=== PATIENT | female | born 1975 | race Caucasian/White ===

== ENCOUNTER 2023-02-16 11:55 | Emergency (ER) | payer OTHER ==
[2023-02-16] MEDS: Bacitracin Oint 1 GM U/D Packet TOP ONE (12:14)
== END 2023-02-16 12:25 | disposition home or self-care (01) ==
LOC: LL.ED 11:55
DX: S61.012A Laceration without foreign body of left thumb without damage to nail, initial encounter (principal); Z88.0 Allergy status to penicillin; Z88.1 Allergy status to other antibiotic agents; Z88.2 Allergy status to sulfonamides; W26.8XXA Contact with other sharp object(s), not elsewhere classified, initial encounter; Y93.G9 Activity, other involving cooking and grilling
CPT/HCPCS: 12001; 99282-25